=== PATIENT | female | born 1985 | race Two or more races ===

== ENCOUNTER 2020-12-30 19:36 | Emergency (ER) | payer SELFPAY ==
[2020-12-30] MEDS ORDERED: Haloperidol Lactate 5 MG/ML SDV IM ONE (20:32)
[2020-12-30] MEDS ORDERED: Benztropine 1 MG Tab PO STA (20:32)
--- NOTE | 2020-12-30 20:35 | EDM.PDOC ---
ED HPI GENERAL MEDICAL PROBLEM - General Chief Complaint: Neurological Problem Stated Complaint: DIZZY HEADACHES Time Seen by Provider: 12/30/20 20:15 Source of Information: Reports: Patient History Limitations: Reports: No Limitations - History of Present Illness INITIAL COMMENTS - FREE TEXT/NARRATIVE: Mrs. Sosa is a pleasant 35-year-old woman who now presents to the ED stating that she has had 3 episodes of dizzy spells since this past 12/27/2020, each lasting about 10 minutes, although she states that in between the spells, she still feels a low level of dizziness. She describes the dizziness as a combination of lightheadedness and vertigo. When she had the spells, she also had tingling/numbness of her her lips, the left side of her face, and both of her hands. Additionally, she has also had a headache that she describes as a pressure sensation, that has extended from her forehead up over the top of her head. The headache is constant, but is worse when she has the dizzy spells. No associated nausea, photophobia, phonophobia or visual changes, such as blurry vision, wavy lines, or flashing lights. The patient states that she went to the walk-in clinic to be evaluated, but was sent here. No prior similar symptoms. Here in the ED, the patient is found to be hemodynamically stable, afebrile, saturating 98% on room air. She appears to be comfortable, in no acute distress, although states that she currently has a headache felt to the back right of her head as well as a very slight tingling to the left side of her face. She is not feeling dizzy. Prior to Wednesday, the patient denies having a recent fever, chills, sore throat, ear pain, nasal or sinus congestion, cough, dyspnea, chest pain, palpitations, nausea, vomiting, constipation, diarrhea, abdominal pain, urinary symptoms, recent weight gain or weight loss, recent bloody bowel movements or black bowel movements, recent joint aches, headaches, or rashes. The patient does not have a PCP. Her B[employer] Heater is Dr. Tamra Lee. Headache Pain Score (Numeric/FACES): 5 - Related Data Allergies Allergy/AdvReac Type Severity Reaction Status Date / Time hydromorphone [From Dilaudid] Allergy Severe Itching Verified 12/30/20 19:54 Home Meds: Home Meds Rizatriptan Benzoate [Rizatriptan] 1 tab PO ASDIRECTED PRN #3 tab.rapdis 12/30/20 [Rx] Past Medical History Endocrine/Metabolic History: Reports: Obesity/BMI 30+ - Past Surgical History Musculoskeletal Surgical History: Reports: ORIF (right ankle), Other (See Below) (Left ankle tendon repair) Social & Family History - Tobacco Use Tobacco Use Status *Q: Never Tobacco User Second Hand Smoke Exposure: No - Alcohol Use Alcohol Use History: Yes Alcohol Use Frequency: Socially - Recreational Drug Use Recreational Drug Use: Yes Drug Use in Last 12 Months: Yes Recreational Drug Type: Reports: Marijuana/Hashish (gummy, early December 2020) - Living Situation & Occupation Living situation: Reports: , with Spouse, with Family (4 kids) Occupation: Unemployed ED ROS GENERAL - Review of Systems Review Of Systems: Comprehensive ROS is negative, except as noted in HPI. ED EXAM, GENERAL - Physical Exam Exam: See Below Exam Limited By: No Limitations General Appearance: Alert, WD/WN, No Apparent Distress Eye Exam: Bilateral Eye: EOMI, Normal Inspection, PERRL Ears: Normal External Exam, Normal Canal, Hearing Grossly Normal, Normal TMs Nose: Normal Inspection, Normal Mucosa, No Blood Throat/Mouth: Normal Inspection, Normal Lips, Normal Teeth, Normal Gums, Normal Oropharynx, Normal Voice, No Airway Compromise Head: Atraumatic, Normocephalic Neck: Normal Inspection, Supple, Non-Tender, Full Range of Motion. No: Lymphadenopathy (L), Lymphadenopathy (R) Respiratory/Chest: No Respiratory Distress, Lungs Clear, Normal Breath Sounds, No Accessory Muscle Use Cardiovascular: Normal Peripheral Pulses, Regular Rate, Rhythm, No Gallop, No J VD, No Murmur, No Rub, Other (No carotid bruits) Peripheral Pulses: 3+: Radial (L), Radial (R) GI/Abdominal: Normal Bowel Sounds, Soft, Non-Tender, No Organomegaly, No Distention, No Abnormal Bruit, No Mass Back Exam: Normal Inspection, Full Range of Motion, NT Extremities: Normal Inspection, Normal Range of Motion, Normal Capillary Refill Neurological: Alert, Oriented, CN II-XII Intact, Normal Cognition, No Motor/Sensory Deficits, Other ([place]-Hallpike maneuvers did not induce nystagmus or vertigo either direction) Psychiatric: Normal Affect Skin Exam: Warm, Dry, Intact, Normal Color, No Rash #1 Interpretation EKG Date: 12/30/20 Time: 20:48 Rhythm: NSR Rate (Beats/Min): 81 [place]: Normal P-Wave: Present QRS: Other (Early transition. R/S in V1 >1, therefore RVH possible.) ST-T: Normal QT: Normal Comparison: NA - No Prior EKG Course - Vital Signs Last Recorded V/S: Last Vital Signs Temp 36.6 C 12/30/20 19:49 Pulse 87 12/30/20 19:49 Resp 16 12/30/20 19:49 BP 136/97 H 12/30/20 19:49 Pulse Ox 98 12/30/20 19:49 Orthostatic Blood Pressure [ 118/85 Standing] Orthostatic Blood Pressure [ 116/74 Supine] - Orders/Labs/Meds Labs: Laboratory Tests 12/30/20 12/30/20 12/30/20 Range/Units 20:48 21:05 21:05 WBC 6.91 (3.98-10.04) K/mm3 RBC 4.48 (3.98-5.22) M/mm3 Hgb 12.0 (11.2-15.7) gm/dl Hct 37.8 (34.1-44.9) % MCV 84.4 (79.4-94.8) fl MCH 26.8 (25.6-32.2) pg MCHC 31.7 L (32.2-35.5) g/dl RDW Std Deviation 42.0 (36.4-46.3) fL Plt Count 297 (182-369) K/mm3 MPV 10.3 (9.4-12.3) fl Neutrophils % (Manual) 57 (40-60) % Band Neutrophils % 2 (0-10) % Lymphocytes % (Manual) 34 (20-40) % Atypical Lymphs % 0 % Monocytes % (Manual) 4 (2-10) % Eosinophils % (Manual) 3 (0.7-5.8) % Basophils % (Manual) 0 L (0.1-1.2) Platelet Estimate Adequate RBC Morph Comment Normal D-Dimer, Quantitative (0.19-0.50) mg/L Sodium 142 (136-145) mEq/L Potassium 3.8 (3.5-5.1) mEq/L Chloride 103 (98-107) mEq/L Carbon Dioxide 28 (21-32) mEq/L Anion Gap 14.8 (5-15) BUN 20 H (7-18) mg/dL Creatinine 0.9 (0.55-1.02) mg/dL Est Cr Clr Drug Dosing 76.77 mL/min Estimated GFR (MDRD) > 60 (>60) mL/min BUN/Creatinine Ratio 22.2 H (14-18) Glucose 88 (70-99) mg/dL Calcium 9.1 (8.5-10.1) mg/dL Magnesium 2.1 (1.8-2.4) mg/dL Total Bilirubin 0.3 (0.2-1.0) mg/dL AST 17 (15-37) U/L ALT 29 (14-59) U/L Alkaline Phosphatase 77 (46-116) U/L C-Reactive Protein 1.6 H* (<1.0) mg/dL Total Protein 7.4 (6.4-8.2) g/dl Albumin 3.6 (3.4-5.0) g/dl Globulin 3.8 gm/dL Albumin/Globulin Ratio 1.0 (1-2) TSH 3rd Generation 1.912 (0.358-3.74) uIU/mL HCG, Qual (NEGATIVE) Influenza Type A RNA Negative (NEGATIVE) Influenza Type B RNA Negative (NEGATIVE) SARS-CoV-2 RNA (ANIL) Negative (NEGATIVE) 12/30/20 12/30/20 Range/Units 21:05 21:05 WBC (3.98-10.04) K/mm3 RBC (3.98-5.22) M/mm3 Hgb (11.2-15.7) gm/dl Hct (34.1-44.9) % MCV (79.4-94.8) fl MCH (25.6-32.2) pg MCHC (32.2-35.5) g/dl RDW Std Deviation (36.4-46.3) fL Plt Count (182-369) K/mm3 MPV (9.4-12.3) fl Neutrophils % (Manual) (40-60) % Band Neutrophils % (0-10) % Lymphocytes % (Manual) (20-40) % Atypical Lymphs % % Monocytes % (Manual) (2-10) % Eosinophils % (Manual) (0.7-5.8) % Basophils % (Manual) (0.1-1.2) Platelet Estimate RBC Morph Comment D-Dimer, Quantitative 0.21 (0.19-0.50) mg/L Sodium (136-145) mEq/L Potassium (3.5-5.1) mEq/L Chloride (98-107) mEq/L Carbon Dioxide (21-32) mEq/L Anion Gap (5-15) BUN (7-18) mg/dL Creatinine (0.55-1.02) mg/dL Est Cr Clr Drug Dosing mL/min Estimated GFR (MDRD) (>60) mL/min BUN/Creatinine Ratio (14-18) Glucose (70-99) mg/dL Calcium (8.5-10.1) mg/dL Magnesium (1.8-2.4) mg/dL Total Bilirubin (0.2-1.0) mg/dL AST (15-37) U/L ALT (14-59) U/L Alkaline Phosphatase (46-116) U/L C-Reactive Protein (<1.0) mg/dL Total Protein (6.4-8.2) g/dl Albumin (3.4-5.0) g/dl Globulin gm/dL Albumin/Globulin Ratio (1-2) TSH 3rd Generation (0.358-3.74) uIU/mL HCG, Qual Negative (NEGATIVE) Influenza Type A RNA (NEGATIVE) Influenza Type B RNA (NEGATIVE) SARS-CoV-2 RNA (ANIL) (NEGATIVE) Meds: Medications Discontinued Medications Generic Name Dose Route Start Last Admin Trade Name Freq PRN Reason Stop Dose Admin Benztropine Mesylate 1 mg 12/30/20 20:32 12/30/20 20:47 Benztropine 1 Mg Tab PO 12/30/20 20:33 1 mg ONETIME STA Administration Haloperidol Lactate 5 mg 12/30/20 20:32 12/30/20 20:46 Haloperidol Lactate 5 Mg/Ml Sdv IM 12/30/20 20:33 5 mg ONETIME ONE Administration - Re-Assessments/Exams Free Text/Narrative Re-Assessment/Exam: 12/30/20 20:33 As above, the patient has experienced 3 episodes of vertigo since Wednesday, with minor symptoms in between, along with tingling of her lips, the left side of her face, and both hands, along with a pressure sensation headache. At present, she has no vertigo, but does have a little bit of left facial tingling and a back right headache. Her neurologic examination is completely normal, along with negative [place]-Hallpike maneuvers. Her symptoms could be due to a migraine, which is why I have ordered some Haldol to see if that resolves her symptoms. I have also ordered a work-up to look for anything more serious, including orthostatics, numerous blood tests, a swab to check for the SARS-CoV-2 virus and influenza A + B viruses, a CT of the head without contrast, and an ECG. 12/30/20 21:03 The patient is not orthostatic. CT of the head without contrast is read by [facility] as "No acute intracranial abnormality." 12/30/20 22:02 The patient's CBC is unremarkable. Her CMP is remarkable for a BUN slightly elevated at 20, but with a Cr normal at 0.9, and the remainder of her CMP being unremarkable. Her magnesium level is within normal limits at 2.1. Her TSH is within normal limits at 1.921. Her CRP is slightly elevated at 1.6. Her D-dimer is within normal limits at 0.21. Her qualitative hCG is negative. Her swab for the SARS-CoV-2 virus and influenza A + B is negative for all. 12/30/20 22:12 Test results discussed with the patient. She states that she is much better following the IM Haldol, that her headache has resolved. This indicates that her symptoms are most likely due to a migraine. 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 I will also refer her to the clinic so that she can establish a PCP. Her ECG demonstrated early transition and an R/S ratio in V1 of >1, therefore RVH is possible, although no other ECG abnormalities suggestive of RVH were seen. Her new PCP can order an outpatient echocardiogram to evaluate. Departure - Departure Time of Disposition: 22:13 Disposition: Home, Self-Care 01 Condition: Good Clinical Impression: Migraine headache - Discharge Information *PRESCRIPTION DRUG MONITORING PROGRAM REVIEWED*: Not Applicable *COPY OF PRESCRIPTION DRUG MONITORING REPORT IN PATIENT WILLIAMS: Not Applicable Prescriptions: Rizatriptan Benzoate [Rizatriptan] 1 tab PO ASDIRECTED PRN #3 tab.rapdis PRN Reason: Headache Instructions: Migraine Headache Referrals: Annette Fletcher NP [Nurse Practitioner] - Forms: ED Department Discharge Additional Instructions: You were seen in the emergency room after experiencing spells of vertigo, with lip, left face, and hand tingling, and a headache since Wednesday. Work-up in the ER included positional blood pressure checks, numerous blood tests, a swab for the SARS-CoV-2 virus and influenza A + B viruses, a CT of your head, and an ECG. Your symptoms significantly improved following treatment with IM Haldol, indicating that your symptoms were likely due to a migraine. We recommend that you stay adequately hydrated and get plenty of rest tonight in a dark, quiet place. A prescription for the anti-migraine medicine rizatriptan (Maxalt) has been sent to the [facility], located just south and across the [address] from [facility]. Dissolve 1 tablet of rizatriptan in your mouth, like a lozenge, at the earliest sign of a migraine. You may repeat after 2 hours, if necessary, to a maximum of 3 tablets within a 24-hour period. We recommend you follow-up with Annette Fletcher NP, or one of the other providers in the clinic, to establish a PCP. If rizatriptan helps you, your new provider can write additional prescriptions. Your ECG found a subtle abnormality that could be due to right ventricular hypertrophy = thickening of your right ventricle. We recommend that you get an outpatient echocardiogram to evaluate for it. Please see your new PCP in this regard. The remainder of your work-up was unremarkable. If any other problems, please do not hesitate to return to the ER. Sepsis Event Note (ED) - Evaluation Sepsis Screening Result: No Definite Risk
[2020-12-30 21:43] LABS: CORONAVIRUS COVID-19 NAA NEGATIVE (NEGATIVE)
--- NOTE | 2020-12-31 08:32 | CT ---
Head CT Technique: Multiple axial sections through the brain were obtained. Intravenous contrast was not utilized. Reconstructed coronal and sagittal images were obtained. Comparison: No prior intracranial imaging is available. Findings: Ventricles along with basal cisterns and sulci over the convexities are within normal limits for the patient's age. No abnormal parenchymal densities are seen. No evidence of intracranial hemorrhage. No midline shift or mass-effect is seen. Bone window settings were reviewed. Visualized mastoid and paranasal sinuses show nothing acute. No acute calvarial abnormality is appreciated. Impression: 1. No acute intracranial abnormality is appreciated on noncontrast head CT study. Diagnostic code #1 I agree with preliminary report from [facility], finalized on 12/30/20, 9:59 PM CDT, code 1
== END 2020-12-30 22:27 | disposition home or self-care (01) ==
LOC: JD.ED 19:36
DX: G43.909 Migraine, unspecified, not intractable, without status migrainosus (principal); E66.9 Obesity, unspecified; Z68.38 Body mass index [BMI] 38.0-38.9, adult; Z20.822 Contact with and (suspected) exposure to COVID-19; Z88.5 Allergy status to narcotic agent
CPT/HCPCS: 0240U; 36415; 70450; 80053; 83735; 84443; 84703; 85007; 85027; 85379; 86140; 93005; 96372; 99284; A9270; J1630; 93010

== ENCOUNTER 2025-02-06 07:59 | Day surgery (SDC) | payer BC ==
[~2025-02-06 07:59] MED LIST: Sodium Chloride 0.9% 10 ML Syringe FLUSH PRN; Sodium Chloride 0.9% 10 ML Syringe FLUSH SCH
[2025-02-06] MEDS ORDERED: Lidocaine 1% 4 ML ONE (08:05)
[2025-02-06] MEDS ORDERED: Ketorolac 30 MG/ML SDV ONE (08:05)
[2025-02-06] MEDS ORDERED: dexmedeTOMIDine HCl 200 MCG/2 ML SDV ONE (08:05)
[2025-02-06] MEDS ORDERED: Ondansetron 4 MG/2 ML SDV ONE (08:05)
[2025-02-06] MEDS ORDERED: Propofol 200 MG/20 ML SDV ONE (08:05)
[2025-02-06] MEDS ORDERED: ceFAZolin 2 GM Vial ONE (08:05)
[2025-02-06] MEDS ORDERED: Midazolam 1 MG/ML 2 ML SDV ONE (08:05)
[2025-02-06] MEDS ORDERED: Lactated Ringers 1,000 ML ONE (08:05)
[2025-02-06] MEDS ORDERED: fentaNYL 250 MCG/5 ML SDV ONE (08:05)
[2025-02-06] MEDS ORDERED: Rocuronium 50 MG/5 ML Vial ONE (08:05)
[2025-02-06 08:20] LABS: APPEARANCE,URINE CLEAR (Clear); BILIRUBIN,URINE NEGATIVE (Negative); COLOR,URINE YELLOW (Yellow); GLUCOSE,URINE NEGATIVE (Negative); KETONES,URINE NEGATIVE (Negative); LEUKOCYTE ESTERASE,URINE NEGATIVE (Negative); NITRITE,URINE NEGATIVE (Negative); OCCULT BLOOD,URINE NEGATIVE (Negative); PROTEIN,URINE NEGATIVE (Negative); UROBILINOGEN,URINE 0.2 (0.2-1.0)
[2025-02-06] MEDS: Lactated Ringers 1,000 ML IV SCH (08:37)
[2025-02-06] MEDS ORDERED: Dexamethasone 4 MG/ML 5 ML MDV ONE (08:48)
[2025-02-06] MEDS ORDERED: Phenylephrine 1% 10 MG/ML SDV ONE (08:48)
[2025-02-06] MEDS ORDERED: Ondansetron 4 MG/2 ML SDV IVPUSH PRN (08:58)
[2025-02-06] MEDS ORDERED: Ketamine HCL/NACL, ISO-OSM 50 MG/5 ML Syringe ONE (09:27)
[2025-02-06] MEDS ORDERED: Sugammadex Sodium 200 MG/2 ML VIAL IV ONE (09:34)
[2025-02-06] MEDS: Bupivacaine 0.5% 30 ML SDV ONE (09:57)
[2025-02-06] MEDS: Bupivacaine 0.25% 10 ML SDV ONE (10:25)
[2025-02-06] MEDS: EPINEPHrine 1 MG/ML SDV ONE (10:25)
[2025-02-06] MEDS: fentaNYL 100 MCG/2 ML SDV IVPUSH PRN (11:33)
[2025-02-06] MEDS: oxyCODONE 5 MG Tab PO SCH (13:12)
== END 2025-02-06 14:53 | disposition home or self-care (01) ==
LOC: JD.SDS 07:59
PROVIDERS: ATTEND Obstetrics & Gynecology
DX: N92.1 Excessive and frequent menstruation with irregular cycle (principal); N94.6 Dysmenorrhea, unspecified; I25.10 Atherosclerotic heart disease of native coronary artery without angina pectoris; Z88.8 Allergy status to other drugs, medicaments and biological substances; Z79.899 Other long term (current) drug therapy
CPT/HCPCS: 58552; 81003; 81025; A9270; J0171; J0665; J0690; J1100; J1885; J2003; J2250; J2371; J2405; J2704; J3010; J7120; 00944; J3490